=== PATIENT | female | born 1985 | race Asian ===

== ENCOUNTER 2017-02-20 21:52 | Outpatient (CLI) | payer BC ==
[~2017-02-20 21:52] MED LIST: AUGMENTIN875 MG PO; ZOFRAN ODT4 MG PO
[2017-02-20 22:45] VITALS: BP 125/83
[2017-02-20 22:54] VITALS: BP 129/82
[2017-02-20] MEDS ORDERED: PRENATAL TABLE1 EAC3 PO (23:04)
== END 2017-02-20 23:10 | disposition home or self-care (01) ==
LOC: LDRP-OP 21:52 → 2WEST 21:53 → LDRP-OP 03-18 14:39
DX: O47.1 False labor at or after 37 completed weeks of gestation (principal); Z3A.40 40 weeks gestation of pregnancy
CPT/HCPCS: 59025; C1755; G0378

== ENCOUNTER 2017-02-22 12:39 | Inpatient (IN) | payer BC ==
[~2017-02-22] VITALS: Ht 154.9 cm; Wt 64.9 kg
[2017-02-22] VITALS (8 sets, daily range): BP systolic 124–149; BP diastolic 71–92
[~2017-02-22 12:39] MED LIST changes: +PRENATAL TABLE1 EAC3 PO
[2017-02-22 18:45] LABS: EOSINOPHIL (%) 1.3 % (0-5); EOSINOPHIL COUNT 0.2 K/uL (0-0.3); HEMATOCRIT 34.1 % (36.0-46.0); IMMATURE GRANULOCYTE (%) 0.8 % (0.0-0.7); IMMATURE GRANULOCYTE COUNT 0.1 K/uL; LYMPHOCYTE COUNT 2.1 K/uL (1.0-2.8); MCH 29.2 PG (29.0-34.0); MCHC 34.3 G/DL (30.0-36.0); MEAN PLAT.VOLUME 9.6 uM^3 (9.5-12.4); MONOCYTE (%) 7.1 % (3-12); MONOCYTE COUNT 0.9 K/uL (0-0.8); NEUTROPHIL (%) 73.4 % (45-76); PLATELET COUNT 162 K/uL (156-360); RBC DIS.WIDTH-CV 14.6 % (11.8-14.6); RED BLOOD COUNT 4.01 M/uL (3.80-5.20); WHITE BLOOD COUNT 12.3 K/uL (4.1-10.2)
[2017-02-22] MEDS ORDERED: MOTRIN800 MG PO (22:52)
[2017-02-23] VITALS (33 sets, daily range): BP systolic 119–205; BP diastolic 66–96
[2017-02-23] MEDS ORDERED: MOTRIN800 MG PO (12:31)
[2017-02-24 08:30] VITALS: BP 109/69
[2017-02-24 16:00] VITALS: BP 110/64
[2017-02-24 23:00] VITALS: BP 124/73
[2017-02-25 07:26] VITALS: BP 129/67
[2017-02-25 14:21] VITALS: BP 129/63
== END 2017-02-25 16:55 | disposition home or self-care (01) | DRG 775 ==
LOC: LDRP-OP 12:39 → 2WEST 12:43 → LDRP-OP 03-18 03:17
PROVIDERS: Midwife
PROC: 10907ZC Drainage of Amniotic Fluid, Therapeutic from Products of Conception, Via Natural or Artificial Opening (ICD-10-PCS; 2017-02-22)
PROC: 10E0XZZ Delivery of Products of Conception, External Approach (ICD-10-PCS; principal; 2017-02-23)
DX: O48.0 Post-term pregnancy (principal); O63.0 Prolonged first stage (of labor); O70.1 Second degree perineal laceration during delivery; Z37.0 Single live birth; Z3A.41 41 weeks gestation of pregnancy; O76 Abnormality in fetal heart rate and rhythm complicating labor and delivery; O69.81X1 Labor and delivery complicated by cord around neck, without compression, fetus 1
CPT/HCPCS: 59025; 85025; C1755; G0378; J0595; J3010; J7120